=== PATIENT | female | born 1970 | race Caucasian/White ===

== ENCOUNTER 2017-07-31 11:48 | Emergency (ER) | payer OTHER ==
[2017-07-31 11:48] VITALS: BMI 27.9
[2017-07-31 12:05] VITALS: RESP 18
--- NOTE | 2017-07-31 13:04 | C.PDOC ---
History Of Present Illness 47 yo female c.o fever and bodyaches for 3 days. Also notes lower back pain and bleeding when she wipes after urination. Last dose of Motrin 4 am. No other medication taken. No known sick contacts. No cough, congestion, sob, abdominal pain, dysuria, urinary frequency, vaginal discharge, or other complaints. Time Seen by Provider: 07/31/17 12:35 Chief Complaint (Nursing): Flu-like Symptoms History Per: Patient, Family History/Exam Limitations: no limitations Onset/Duration Of Symptoms: Days Current Symptoms Are (Timing): Still Present Past Medical History Vital Signs: Last Vital Signs Temp 98.6 F 07/31/17 13:53 Pulse 97 H 07/31/17 13:53 Resp 18 07/31/17 13:53 BP 92/63 L 07/31/17 13:53 Pulse Ox 100 07/31/17 13:57 Surgical History: Cholecystectomy Other Surgeries: splenectomy for cysts in [place] Family History: States: Unknown Family Hx - Social History Hx Tobacco Use: No Hx Alcohol Use: No Hx Substance Use: No - Immunization History Hx Tetanus Toxoid Vaccination: No Hx Influenza Vaccination: No Hx Pneumococcal Vaccination: No Review Of Systems Except As Marked, All Systems Reviewed And Found Negative. Constitutional: Positive for: Fever, Other (body aches) Genitourinary: Positive for: Vaginal Bleeding Musculoskeletal: Positive for: Back Pain Physical Exam - Physical Exam Appears: Well, Non-toxic, No Acute Distress Skin: Normal Color, Warm, Dry Head: Atraumatic, Normacephalic Eye(s): bilateral: Normal Inspection, PERRL, EOMI Ear(s): Bilateral: Normal Nose: Normal Oral Mucosa: Moist Throat: Normal, No Erythema, No Exudate Neck: Normal, Normal ROM, Supple Chest: Symmetrical Cardiovascular: Rhythm Regular Respiratory: Normal Breath Sounds Gastrointestinal/Abdominal: Normal Exam, Soft, No Tenderness Back: No CVA Tenderness, No Vertebral Tenderness, Paraspinal Tenderness ((+) lower paralumbar tenderness, no CVA tendernerss) Extremity: Normal ROM Neurological/Psych: Oriented x3, Normal Speech ED Course And Treatment O2 Sat by Pulse Oximetry: 100 Progress Note: On re-evaluation, patient is resting comfortably, tolerating PO, and is afebrile at this time. Clinical signs and symptoms are not suggestive of sepsis, meningitis, pneumonia, intra-abdominal pathology, or cellulitis. Patient will be discharged home, and instructed to follow up with his/her physician in 1-2 days without fail. Patient was instructed to return for any worsening symptoms, persistent fever, neck pain, rash, abdominal pain, or vomiting. Discussed with pt concern for rapid infection secondary to splenectomy therefore strict follow up is encoaraged. Case discussed with Dr Street agreed upon plan and treatment, instructs Cipro RX. Disposition - Disposition Disposition: HOME/ ROUTINE Disposition Time: 13:56 Condition: STABLE Additional Instructions: Vaya a craft mdico o la clnica en 1-3 cruz sin falta, para mas evaluacin. [place] los medicamentos luna indicado. Volver a la luz de emergencia en cualquier momento si los sntomas persisten o empeoran. Prescriptions: Ciprofloxacin HCl [Cipro] 500 mg PO BID #14 tab Ibuprofen [Motrin] 600 mg PO Q6 PRN #20 tab PRN Reason: Pain, Mild (1-3) Instructions: Urinary Tract Infection in Women (ED) Forms: [facility] (Persian) Print Language: TAJIK - Clinical Impression Clinical Impression: Urinary tract infection
[2017-07-31 13:26] LABS: HCG,QUALITATIVE URINE NEGATIVE (NEGATIVE)
[2017-07-31 13:33] LABS: SQUAMOUS EPITHIAL 13 /hpf (0-5); URINE BACTERIA OCC (<OCC); URINE BILIRUBIN NEGATIVE (NEGATIVE); URINE BLOOD 3+ (NEGATIVE); URINE CLARITY Hazy (Clear); URINE COLOR Yellow (YELLOW); URINE GLUCOSE (UA) NORMAL (Normal); URINE LEUKOCYTE ESTERASE 2+ Leu/uL (Negative); URINE NITRATE NEGATIVE (NEGATIVE); URINE PROTEIN 1+ mg/dL (NEGATIVE); URINE UROBILINOGEN NORMAL mg/dL (0.2-1.0)
[2017-07-31 13:54] VITALS: BP 92/63; PULSE 97; TEMP 98.6
[2017-07-31 13:56] VITALS: O2SAT 100
== END 2017-07-31 14:02 | disposition home or self-care (01) ==
LOC: C.ER 11:48
DX: N39.0 Urinary tract infection, site not specified (principal)